=== PATIENT | male | born 1985 | race Two or more races ===

== ENCOUNTER 2019-06-24 16:10 | Emergency (ER) | payer OTHER ==
[~2019-06-24] VITALS: Ht 180.3 cm; Wt 65.2 kg
[2019-06-24] MEDS ORDERED: ondansetron/PF 4mg/2ml inj IV ONE (16:55)
[2019-06-24] MEDS ORDERED: magnesium 2GM in 50ml NS 50 ML IV ONE ×2 (16:55→21:30)
[2019-06-24] MEDS ORDERED: LORazepam 2 mg/ml vial IV ONE ×3 (16:55→20:25)
[2019-06-24] MEDS ORDERED: normal saline 1000ML IV soln IVB ONE ×4 (16:55→21:25)
[2019-06-24] MEDS ORDERED: LORazepam 1 MG tablet PO ONE (17:00)
[2019-06-24 17:10] LABS: BASOPHILS # (AUTO) 0.1 X10'3 (0-0.2); BASOPHILS % (AUTO) 0.4 % (0-1); EOSINOPHILS % (AUTO) 0 % (0-6); HEMATOCRIT 45.3 % (42.0-52.0); HEMOGLOBIN 15.5 g/dl (14.0-17.9); LYMPHOCYTES # (AUTO) 1.9 X10'3 (1.1-4.8); MEAN CORPUSCULAR HEMOGLOBIN 34.1 PG (27.0-31.0); MEAN CORPUSCULAR HGB CONC 34.2 g/dL (33.0-36.5); MEAN CORPUSCULAR VOLUME 99.8 FL (78-98); MEAN PLATELET VOLUME 7.9 FL (7.4-10.4); MONOCYTES # (AUTO) 1.4 X10'3 (0-0.9); MONOCYTES % (AUTO) 5.1 % (2-12); NEUTROPHILS # (AUTO) 23.1 X10'3 (1.8-7.7); NEUTROPHILS % (AUTO) 87.5 % (42-75); PLATELET COUNT 287 X10'3 (140-440); RED BLOOD COUNT 4.53 X10'6 (4.70-6.10); RED CELL DISTRIBUTION WIDTH 13.4 % (11.5-14.5)
[2019-06-24 17:25] LABS: ALANINE AMINOTRANSFERASE 54 U/L (12-78); ALBUMIN 4.7 G/DL (3.4-5.0); ALBUMIN/GLOBULIN RATIO 1.3 (1.1-1.5); ALKALINE PHOSPHATASE 132 IU/L (46-116); ANION GAP 21 (8-16); ASPARTATE AMINO TRANSFERASE 94 U/L (10-37); BILIRUBIN,TOTAL 1.1 MG/DL (0.1-1.0); BLOOD UREA NITROGEN 6 MG/DL (7-18); BUN/CREATININE RATIO 4.6 (5.4-32.0); CALCIUM 9.6 MG/DL (8.5-10.1); CHLORIDE 97 MMOL/L (99-107); CREATININE 1.31 MG/DL (0.60-1.10); GLUCOSE 115 MG/DL (70-104); SODIUM 138 MMOL/L (135-145); TOTAL CARBON DIOXIDE 19.8 MMOL/L (24-32); TOTAL PROTEIN 8.3 G/DL (6.4-8.2); WHITE BLOOD COUNT 26.4 X10'3 (4.5-11.0); eGFR 63 ML/MIN
[2019-06-24] MEDS ORDERED: CefTRIAXone 2gm/D5W 50ml 50 ML IV ONE (17:30)
[2019-06-24 17:32] LABS: MAGNESIUM 1.4 MG/DL (1.5-2.4)
--- NOTE | 2019-06-24 17:35 | NUR ---
ATIVAN 2MG WAS GIVEN IV PER MD ORDER
--- NOTE | 2019-06-24 17:39 | NUR ---
PT ATTEMPTED TO GIVE A UA BUT UNSUCCESSFUL. REFUSES TO HAVE CATH DONE. DR SCOTT NOTIFIED. ORDERED ADDITIONAL 1L NS BOLUS. ORDER PLACED AND WILL ADMIN
--- NOTE | 2019-06-24 17:55 | NUR ---
culture to be drawn before starting abx
--- NOTE | 2019-06-24 18:19 | NUR ---
PT GIVEN ATIVAN 2MG IV. RESTING WITH EYES CLOSED RR EQUAL UNLABORED. NO SHAKING NOTED AFTER ATIVAN
[2019-06-24 19:11] LABS: ANISOCYTOSIS 1+; LARGE PLATELETS FEW; PLATELET ESTIMATE NORMAL; TOTAL CELLS COUNTED 100
[2019-06-24] MEDS ORDERED: normal saline 1000ml 1,000 ML IV ONE (20:10)
[2019-06-24] MEDS ORDERED: chlordiazePOXIDE 25mg capsule PO ONE (21:25)
[2019-06-24] MEDS ORDERED: CHLO25CA10 PO (21:29)
[2019-06-24] MEDS ORDERED: ONDA4TAB12 PO (21:29)
[2019-06-24 21:34] LABS: CLARITY,URINE CLEAR (Clear); COLOR,URINE YELLOW (Yellow); GLUCOSE, URINE NEGATIVE (Neg); KETONES,URINE >=80 mg/dl (Neg); LEUKOCYTE ESTERASE ,URINE NEGATIVE (Neg); NITRITES, URINE NEGATIVE (Neg); OCCULT BLOOD,URINE NEGATIVE (Neg); PROTEIN,URINE 30 mg/dl (Neg)
[2019-06-24 21:37] LABS: UA COLLECTION TYPE VOIDED
[2019-06-24 21:38] LABS: BACTERIA,URINE FEW /HPF (Neg); RBC,URINE NONE SEEN /HPF (0-2); SQUAMOUS EPITHELIAL CELL,UR FEW /LPF (FEW); WBC,URINE 0-4 /HPF (0-4)
[2019-06-24 21:50] LABS: BASOPHILS # (AUTO) 0.1 X10'3 (0-0.2); BASOPHILS % (AUTO) 0.5 % (0-1); EOSINOPHILS % (AUTO) 0.1 % (0-6); HEMATOCRIT 37.7 % (42.0-52.0); LYMPHOCYTES # (AUTO) 1.8 X10'3 (1.1-4.8); LYMPHOCYTES % (AUTO) 10.1 % (21-51); MEAN CORPUSCULAR HEMOGLOBIN 34.6 PG (27.0-31.0); MEAN CORPUSCULAR HGB CONC 34.4 g/dL (33.0-36.5); MEAN CORPUSCULAR VOLUME 100.8 FL (78-98); MEAN PLATELET VOLUME 7.8 FL (7.4-10.4); MONOCYTES % (AUTO) 5.8 % (2-12); NEUTROPHILS # (AUTO) 14.6 X10'3 (1.8-7.7); NEUTROPHILS % (AUTO) 83.5 % (42-75); PLATELET COUNT 219 X10'3 (140-440); RED BLOOD COUNT 3.74 X10'6 (4.70-6.10); RED CELL DISTRIBUTION WIDTH 13.3 % (11.5-14.5); WHITE BLOOD COUNT 17.5 X10'3 (4.5-11.0)
[2019-06-24 22:02] LABS: ALBUMIN 3.5 G/DL (3.4-5.0); ANION GAP 12 (8-16); BLOOD UREA NITROGEN 5 MG/DL (7-18); BUN/CREATININE RATIO 4.4 (5.4-32.0); CALCIUM 7.4 MG/DL (8.5-10.1); CHLORIDE 106 MMOL/L (99-107); CREATINE KINASE 430 U/L (39-308); CREATININE 1.13 MG/DL (0.60-1.10); GLUCOSE 94 MG/DL (70-104); POTASSIUM 4.3 MMOL/L (3.5-5.1); SODIUM 141 MMOL/L (135-145); TOTAL CARBON DIOXIDE 23.5 MMOL/L (24-32); eGFR 75 ML/MIN
[2019-06-24 23:45] VITALS: BP 117/63
[2019-06-25] MEDS ORDERED: chlordiazePOXIDE 25mg capsule PO ONE (00:30)
== END 2019-06-25 00:45 | disposition home or self-care (01) ==
LOC: ER 16:11
DX: F10.230 Alcohol dependence with withdrawal, uncomplicated (principal); R11.2 Nausea with vomiting, unspecified; F17.210 Nicotine dependence, cigarettes, uncomplicated; Z79.899 Other long term (current) drug therapy
CPT/HCPCS: 36415; 71045; 80048; 80053; 81001; 82550; 83605; 83735; 83880; 84145; 84484; 85025; 87040; 93005; 96361; 96365; 96366; 96375; 96376; 99284; J0696; J2060; J2405; J3475; J7030

== ENCOUNTER 2024-04-20 18:51 | Emergency (ER) | payer MEDICAID ==
[~2024-04-20] VITALS: Ht 182.9 cm; Wt 86.4 kg
[~2024-04-20 18:51] MED LIST: CHLO25CA10 PO; ONDA-243 PO
[2024-04-20 20:31] VITALS: BP 122/82; PULSE 90; RESP 18; TEMP 98.4; O2SAT 98
== END 2024-04-20 20:32 | disposition home or self-care (01) ==
LOC: ER 18:51
DX: Z02.89 Encounter for other administrative examinations (principal); F10.90 Alcohol use, unspecified, uncomplicated; Z79.899 Other long term (current) drug therapy; V98.8XXA Other specified transport accidents, initial encounter; Y93.89 Activity, other specified; Y92.89 Other specified places as the place of occurrence of the external cause; Y99.8 Other external cause status
CPT/HCPCS: 99283